=== PATIENT | male | born 1990 | race African-American/Black ===

== ENCOUNTER 2019-09-09 00:27 | Emergency (ER) | payer MEDICAID ==
[~2019-09-09] VITALS: Ht 182.9 cm; Wt 95.0 kg
[2019-09-09] MEDS ORDERED: HYDROCODONE/ACETAMINOPHEN 10/325MG TABLET PO ONE (01:30)
[2019-09-09 02:40] VITALS: BP 127/69
== END 2019-09-09 02:47 | disposition home or self-care (01) ==
LOC: ER 00:27
DX: S06.0X9A Concussion with loss of consciousness of unspecified duration, initial encounter (principal); S00.01XA Abrasion of scalp, initial encounter; J45.909 Unspecified asthma, uncomplicated; V29.49XA Motorcycle driver injured in collision with other motor vehicles in traffic accident, initial encounter; Y93.89 Activity, other specified; Y92.488 Other paved roadways as the place of occurrence of the external cause
CPT/HCPCS: 99285